=== PATIENT | female | born 1980 | race African-American/Black ===

== ENCOUNTER 2019-01-12 18:09 | Emergency (ER) | payer OTHER ==
[~2019-01-12] VITALS: Ht 172.7 cm; Wt 97.7 kg
[2019-01-12] MEDS ORDERED: MUCI600T31 PO (18:16)
[2019-01-12] MEDS ORDERED: NYQU1LIQ PO (18:16)
[2019-01-12] MEDS ORDERED: ONDANSETRON 4 MG ORAL DISINTEGRATING TAB (Q0162 PER 1MG) PO ONE (19:15)
[2019-01-12] MEDS ORDERED: IBUPROFEN 800 MG TAB PO ONE (19:15)
[2019-01-12] MEDS ORDERED: ALBUTEROL SULFATE 2.5 MG/0.5 ML INH NEB SOLN NEB ONE (19:15)
[2019-01-12 19:23] LABS: INFLUENZA A AMPLIFICATION POSITIVE (NEGATIVE); INFLUENZA B AMPLIFICATION NEGATIVE (NEGATIVE)
--- NOTE | 2019-01-12 19:31 | REP ---
Clinical: Cough and shortness of breath . Comparison: None . Technique: PA and lateral. Findings: The mediastinum and cardiac silhouette are normal. The lung naranjo are clear and without acute consolidation, effusion, or pneumothorax. The skeletal structures are intact and normal. Impression: 1. No acute cardiopulmonary process. Electronically Signed by Jony Dewey MD 01/12/2019 07:23 P
[2019-01-12 19:41] VITALS: BP 139/90
[2019-01-12] MEDS ORDERED: VENTAER INH (19:54)
[2019-01-12] MEDS ORDERED: ONDA4TAB6 PO (19:55)
== END 2019-01-12 20:14 | disposition home or self-care (01) ==
LOC: M ED 18:09
DX: J09.X2 Influenza due to identified novel influenza A virus with other respiratory manifestations (principal); J20.9 Acute bronchitis, unspecified; Z82.5 Family history of asthma and other chronic lower respiratory diseases
CPT/HCPCS: 71046; 87502; 99283; Q0162